=== PATIENT | female | born 2005 | race Two or more races ===

== ENCOUNTER 2023-03-17 10:00 | Observation (INO) | payer MEDICAID, OTHER | END 2023-03-17 13:08 | disposition home or self-care (01) | LOC: LDRP 10:00 | PROVIDERS: ADMIT Obstetrics & Gynecology; ATTEND Obstetrics & Gynecology | DX: O62.9 Abnormality of forces of labor, unspecified (principal); Z3A.40 40 weeks gestation of pregnancy | CPT/HCPCS: 59025; 76818; 81002; G0378 ==

== ENCOUNTER 2023-03-19 17:23 | Observation (INO) | payer MEDICAID | END 2023-03-19 19:47 | disposition home or self-care (01) | LOC: LDRP 17:23 | PROVIDERS: ADMIT Obstetrics & Gynecology; ATTEND Obstetrics & Gynecology | DX: O48.0 Post-term pregnancy (principal); Z3A.40 40 weeks gestation of pregnancy | CPT/HCPCS: 59025; 76818; 81002; 94760; G0378 ==

== ENCOUNTER 2023-03-21 12:05 | Observation (INO) | payer MEDICAID ==
[2023-03-21] MEDS ORDERED: PREN-96 PO (12:38)
== END 2023-03-21 14:20 | disposition home or self-care (01) ==
LOC: UNDOADMOB 12:05 → LDRP 12:05
PROVIDERS: ADMIT Obstetrics & Gynecology; ATTEND Obstetrics & Gynecology
DX: O48.0 Post-term pregnancy (principal); Z3A.40 40 weeks gestation of pregnancy
CPT/HCPCS: 59025; 76818; 81002; 94760; G0378

== ENCOUNTER 2023-03-23 04:13 | Inpatient (IN) | payer MEDICAID ==
[~2023-03-23] VITALS: Ht 157.5 cm; Wt 95.3 kg
[~2023-03-23 04:13] MED LIST: PREN-96 PO
[2023-03-23] MEDS ORDERED: PHISODERM TOP SOLN 240ML BTL TOP PRN ×2 (04:45→07:15)
[2023-03-23] MEDS ORDERED: DERMOPLAST 60ML BOTTLE TOP PRN ×2 (04:45→07:15)
[2023-03-23] MEDS ORDERED: PROMETHAZINE HCL 25 MG/ML 1ML IV PRN (04:45)
[2023-03-23] MEDS ORDERED: WITCH HAZEL-GLYCERIN PAD TOP PRN ×2 (04:45→07:15)
[2023-03-23] MEDS ORDERED: LIDOCAINE 2%HCL (LOCAL ANESTH.) INJ 20ML MDV IJ PRN (04:45)
[2023-03-23 05:35] LABS: Basophils # (auto) 0 10 ^3/uL (0-0.2); Basophils % (auto) 0.7 % (0.0-2.0); Eosinophils # (auto) 0.1 10 ^3/uL (0-0.8); Hemoglobin 8.9 g/dL (12.2-16.2); Lymphocytes # (auto) 1.4 10 ^3/uL (0.4-5.4); Monocytes # (auto) 0.4 10 ^3/uL (0-1.3); Neutrophils # (auto) 4.9 10 ^3/uL (1.6-8.6)
[2023-03-23 05:37] LABS: Eosinophils % (auto) 1.5 % (0.0-7.0); Hematocrit 28.9 % (36.0-46.0); Lymphocytes % (auto) 20.3 % (10.0-50.0); Mean Corpuscular Hemoglobin 20.4 pg (28.0-32.0); Mean Corpuscular Hgb Conc. 30.9 g/dL (32.0-36.0); Mean Corpuscular Volume 65.8 fL (80.0-100.0); Monocytes % (auto) 6.3 % (0.0-12.0); Neutrophils % (auto) 71.2 % (37.0-80.0); Nucleated Red Blood Cells % 0.1 %; Red Blood Cells 4.39 10^6/uL (4.0-5.20); Red Cell Distribution Width 19.8 % (11.8-14.3); White Blood Cell 6.9 10^3/uL (4.4-10.8)
[2023-03-23 05:54] LABS: Albumin 3.6 g/dL (3.2-4.8); Alkaline Phosphatase 187 U/L (46-116); Anion Gap 10 (5-15); Aspartate Aminotransferase 14 U/L (13-40); BUN/Creatinine Ratio 11.6 (10.0-20.0); Bilirubin, Total 0.7 mg/dL (0.2-1.0); Blood Urea Nitrogen 5 mg/dL (9-23); Calcium 8.3 mg/dL (8.5-10.1); Carbon Dioxide 19 mmol/L (20-30); Chloride 109 mmol/L (98-107); Glucose 120 mg/dL (74-106); Potassium 3.1 mmol/L (3.5-5.1); Sodium 138 mmol/L (136-145); Total Protein 5.7 g/dL (5.7-8.2)
[2023-03-23 05:55] LABS: INR 0.96 (0.9-1.15); Partial Thromboplastin Time 27.1 SEC (24.5-34.5); Prothrombin Time 10.1 sec (9.3-11.8)
[2023-03-23 06:10] LABS: Urine Bacteria FEW /hpf (None Seen); Urine Blood Negative /uL (Negative); Urine Clarity Clear (Clear); Urine Color Yellow (Yellow); Urine Mucus FEW (None Seen); Urine Protein, UAD 1+ (Negative); Urine Specific Gravity 1.014 (1.001-1.035); Urine Urobilinogen Normal (Negative); Urine WBC 11 /hpf (0 - 5); Urine pH 6.5 (5.0-8.0)
[2023-03-23 06:12] LABS: Amphetamine Screen, Urine Neg (NEGATIVE); Barbiturate Scree,Urine Neg (NEGATIVE); Benzodiazephine Screen, Urine Neg (NEGATIVE); Cannabinoid Screen, Urine Neg (NEGATIVE); Cocaine Screen, Urine Neg (NEGATIVE); Opiate Scree,Urine Neg (NEGATIVE); Phencyclidine Screen, Urine Neg (NEGATIVE)
[2023-03-23 06:29] LABS: Alanine Aminotransferase < 9 U/L (7-40)
[2023-03-23] MEDS ORDERED: MINERAL OIL TOPICAL 10ml TOP PRN (07:15)
[2023-03-23] MEDS ORDERED: PROMETHAZINE HCL 25 MG/ML 1ML IM PRN (07:15)
[2023-03-23] MEDS ORDERED: miSOPROStol 100 mcg TAB SL PRN (07:15)
[2023-03-23] MEDS ORDERED: METHYLERGONOVINE MALEATE 0.2 MG/ML AMP IM PRN (07:15)
[2023-03-23] MEDS ORDERED: CARBOPROST TROMETHAMINE 250 MCG/1ML VIAL IM PRN (07:15)
[2023-03-23] MEDS ORDERED: ONDANSETRON HCL 4 MG/2 ML VIAL IV PRN (07:15)
[2023-03-23] MEDS ORDERED: diphenhdrAMINE HCL 50 MG/1 ML VL IV PRN (07:15)
[2023-03-23] MEDS ORDERED: ACETAMINOPHEN 325 MG TAB PO PRN (07:15)
[2023-03-23] MEDS ORDERED: fentaNYL CITRATE 100 MCG/2 ML VL IV PRN (07:15)
[2023-03-23] MEDS ORDERED: TRANEXAMIC ACID 1,000 MG in SODIUM CHL 0.9% 100 ML IV PRN (07:15)
[2023-03-23 09:57] LABS: Platelet Estimate Adequate
[2023-03-23 09:58] LABS: Hypochromia Marked
[2023-03-23] MEDS: miSOPROStol 50 MCG per PRE-CUT 1/2 TAB PO PRN ×2 (10:04→14:30)
[2023-03-23] MEDS: LACTATED RINGER'S 1,000 ML IV SCH ×3 (10:38→23:23)
[2023-03-23] MEDS ORDERED: DIPHENOXYLATE W/ATROPINE 2.5 MG TAB PO SCH (12:00)
[2023-03-23] MEDS: POTASSIUM CHL 20 Meq TABLET PO SCH (21:51)
[2023-03-24] VITALS (18 sets, daily range): BP systolic 103–141; BP diastolic 52–87; PULSE 90–122; RESP 16–18; TEMP 98.4–98.6; O2SAT 95–100
[2023-03-24] MEDS ORDERED: LACT. RINGERS/OXYTOCIN 20UNITS 1,000 ML IV SCH (05:15)
[2023-03-24] MEDS ORDERED: TERBUTALINE SULFATE 1 MG/ML 1ML VIAL SC PRN (05:15)
[2023-03-24] MEDS ORDERED: LACT. RINGERS/OXYTOCIN 20UNITS 500 ML IV ONE ×2 (05:15→05:45)
[2023-03-24 07:06] LABS: RPR Non Reactive (Non Reactive)
[2023-03-24] MEDS: LACTATED RINGER'S 1,000 ML IV SCH ×2 (07:17→14:59)
[2023-03-24] MEDS ORDERED: ceFAZolin 2 GM/D5W100ml 100 ML IV ONE (08:30)
[2023-03-24] MEDS ORDERED: HYDR-4902 PO (08:38)
[2023-03-24] MEDS ORDERED: DOCU-94 PO (08:38)
[2023-03-24] MEDS ORDERED: FAMOTIDINE (10MG/ML) 2ML VL IV ONE (08:50)
[2023-03-24] MEDS ORDERED: SUCCINYLCHOLINE CHLORIDE 20 MG/ML 10ML VIAL IV ONE (08:50)
[2023-03-24] MEDS ORDERED: TETRACAINE 1% INJ 2 ML VIAL IJ ONE (08:50)
[2023-03-24] MEDS ORDERED: MORPHINE SULF PF 5 MG/10 ML VIAL ONE (08:51)
[2023-03-24] MEDS ORDERED: ePHEDrine SULFATE 50 MG/ML AMP ONE (08:51)
[2023-03-24] MEDS ORDERED: GLYCOPYRROLATE 0.2 MG/ML 1ML VIAL ONE (08:51)
[2023-03-24] MEDS ORDERED: KETOROLAC TROMETH 30 MG/ML 1ML VIAL ONE (08:51)
[2023-03-24] MEDS ORDERED: DexAMETHasone SOD PHOS 10MG/1ML VIAL INJ ONE (08:51)
[2023-03-24] MEDS ORDERED: ONDANSETRON HCL 4 MG/2 ML VIAL ONE (08:51)
[2023-03-24] MEDS ORDERED: fentaNYL CITRATE 100 MCG/2 ML VL ONE (08:51)
[2023-03-24] MEDS ORDERED: oxyTOCIN 10 UNIT/ML 10ML VIAL ONE (08:52)
[2023-03-24] MEDS ORDERED: LACT. RINGERS/OXYTOCIN 20UNITS 1,000 ML IV ONE (09:15)
[2023-03-24] MEDS ORDERED: ONDANSETRON HCL 4 MG/2 ML VIAL IV PRN ×3 (09:15→10:15)
[2023-03-24] MEDS ORDERED: CARBOPROST TROMETHAMINE 250 MCG/1ML VIAL IM ONE (09:31)
[2023-03-24] MEDS ORDERED: DIPHENOXYLATE W/ATROPINE 2.5 MG TAB ONE (10:07)
[2023-03-24] MEDS ORDERED: DexAMETHasone SOD PHOS 10MG/1ML VIAL INJ IV PRN (10:15)
[2023-03-24] MEDS ORDERED: NALOXONE HCL 0.4 MG/ML VIAL IV PRN (10:15)
[2023-03-24] MEDS ORDERED: diphenhdrAMINE HCL 50 MG/1 ML VL IV PRN (10:15)
[2023-03-24] MEDS ORDERED: KETOROLAC TROMETH 30 MG/ML 1ML VIAL IV PRN (10:15)
[2023-03-24] MEDS ORDERED: ACETAMINOPHEN IV 1000 MG/100ML (10MG/ML) IV PRN (11:45)
[2023-03-24] MEDS: POTASSIUM CHL 20 Meq TABLET PO SCH ×2 (16:48→22:00)
[2023-03-24] MEDS: ceFAZolin 1GM/50ML 50 ML IV SCH ×2 (16:50→17:15)
[2023-03-24 21:36] LABS: Basophils # (auto) 0 10 ^3/uL (0-0.2); Basophils % (auto) 0.5 % (0.0-2.0); Eosinophils # (auto) 0 10 ^3/uL (0-0.8); Eosinophils % (auto) 0.4 % (0.0-7.0); Hemoglobin 8.2 g/dL (12.2-16.2); Monocytes # (auto) 0.6 10 ^3/uL (0-1.3); Neutrophils # (auto) 7.1 10 ^3/uL (1.6-8.6); Nucleated Red Blood Cells % 0.1 %
[2023-03-24 21:37] LABS: Hematocrit 26.3 % (36.0-46.0); Lymphocytes # (auto) 1.2 10 ^3/uL (0.4-5.4); Lymphocytes % (auto) 13.7 % (10.0-50.0); Mean Corpuscular Hemoglobin 20.3 pg (28.0-32.0); Mean Corpuscular Hgb Conc. 31.1 g/dL (32.0-36.0); Mean Corpuscular Volume 65.4 fL (80.0-100.0); Monocytes % (auto) 6.8 % (0.0-12.0); Neutrophils % (auto) 78.6 % (37.0-80.0); Red Blood Cells 4.03 10^6/uL (4.0-5.20); Red Cell Distribution Width 19.7 % (11.8-14.3); White Blood Cell 9.1 10^3/uL (4.4-10.8)
[2023-03-24 22:15] LABS: Anisocytosis Slight; Hypochromia Marked; Large Platelets FEW; Platelet Estimate Adequate
[2023-03-24 22:16] LABS: Stomatocytes Few
[2023-03-25] VITALS (15 sets, daily range): BP systolic 93–121; BP diastolic 50–65; PULSE 78–99; RESP 16–18; TEMP 97.7–98.6; O2SAT 95–98
[2023-03-25] MEDS: ceFAZolin 1GM/50ML 50 ML IV SCH (01:13)
[2023-03-25 06:19] LABS: Eosinophils # (auto) 0 10 ^3/uL (0-0.8); Hematocrit 24.9 % (36.0-46.0); Hemoglobin 7.8 g/dL (12.2-16.2); Lymphocytes # (auto) 1.3 10 ^3/uL (0.4-5.4); Lymphocytes % (auto) 16.6 % (10.0-50.0); Monocytes # (auto) 0.5 10 ^3/uL (0-1.3); Neutrophils # (auto) 5.8 10 ^3/uL (1.6-8.6); Red Cell Distribution Width 19.7 % (11.8-14.3); White Blood Cell 7.6 10^3/uL (4.4-10.8)
[2023-03-25 06:26] LABS: Basophils # (auto) 0.1 10 ^3/uL (0-0.2); Basophils % (auto) 0.7 % (0.0-2.0); Eosinophils % (auto) 0.5 % (0.0-7.0); Mean Corpuscular Hemoglobin 20.1 pg (28.0-32.0); Mean Corpuscular Hgb Conc. 31.1 g/dL (32.0-36.0); Mean Corpuscular Volume 64.7 fL (80.0-100.0); Monocytes % (auto) 6.5 % (0.0-12.0); Neutrophils % (auto) 75.7 % (37.0-80.0); Nucleated Red Blood Cells % 0.1 %; Red Blood Cells 3.85 10^6/uL (4.0-5.20)
[2023-03-25] MEDS ORDERED: BISACODYL 10 MG RECT SUPP PR PRN (06:30)
[2023-03-25] MEDS ORDERED: HYDROcodone-ACET 5/325MG TAB PO PRN ×2 (06:30)
[2023-03-25] MEDS ORDERED: ACETAMINOPHEN IV 1000 MG/100ML (10MG/ML) IV PRN (07:00)
[2023-03-25 08:42] LABS: Platelet Estimate Adequate
[2023-03-25 08:43] LABS: Anisocytosis Slight; Hypochromia Marked; Tear Drop Cells FEW
[2023-03-25] MEDS ORDERED: ceFAZolin 1GM/50ML 50 ML IV ONE (09:00)
[2023-03-25] MEDS: DOCUSATE CALCIUM 240 MG CAP PO SCH (09:43)
[2023-03-25] MEDS: POTASSIUM CHL 20 Meq TABLET PO SCH ×2 (09:43→21:36)
[2023-03-25] MEDS: FERROUS SULFATE 325mg EC TAB PO SCH ×2 (09:43→21:36)
[2023-03-25] MEDS: DOCUSATE SOD 100 MG CAP PO SCH ×2 (09:44→21:36)
[2023-03-25] MEDS: IBUPROFEN 800 MG TAB PO PRN (11:13)
[2023-03-25] MEDS ORDERED: MEASLES, MUMPS & RUBELLA VAC(MMRII) 0.5ML SC ONE (14:15)
[2023-03-26 03:20] VITALS: BP 96/50; PULSE 87; RESP 18; TEMP 98.3; O2SAT 96
[2023-03-26] MEDS: IBUPROFEN 800 MG TAB PO PRN ×2 (03:26→11:03)
[2023-03-26 07:00] VITALS: BP 106/53; PULSE 73; RESP 17; TEMP 97.7; O2SAT 96
[2023-03-26 07:02] LABS: Basophils # (auto) 0.1 10 ^3/uL (0-0.2); Basophils % (auto) 0.6 % (0.0-2.0); Eosinophils # (auto) 0.1 10 ^3/uL (0-0.8); Eosinophils % (auto) 1.2 % (0.0-7.0); Hemoglobin 8.4 g/dL (12.2-16.2); Lymphocytes # (auto) 1.5 10 ^3/uL (0.4-5.4); Monocytes # (auto) 0.6 10 ^3/uL (0-1.3); Monocytes % (auto) 6.4 % (0.0-12.0); Neutrophils # (auto) 6.9 10 ^3/uL (1.6-8.6); White Blood Cell 9.2 10^3/uL (4.4-10.8)
[2023-03-26 07:05] LABS: Albumin 3.7 g/dL (3.2-4.8); Alkaline Phosphatase 180 U/L (46-116); Anion Gap 8 (5-15); Aspartate Aminotransferase 20 U/L (13-40); Bilirubin, Total 0.8 mg/dL (0.2-1.0); Calcium 8.7 mg/dL (8.7-10.4); Carbon Dioxide 23 mmol/L (20-30); Chloride 108 mmol/L (98-107); Glucose 73 mg/dL (74-106); Hematocrit 26.9 % (36.0-46.0); Lymphocytes % (auto) 16.5 % (10.0-50.0); Mean Corpuscular Hgb Conc. 31.3 g/dL (32.0-36.0); Mean Corpuscular Volume 67.2 fL (80.0-100.0); Neutrophils % (auto) 75.3 % (37.0-80.0); Potassium 3.9 mmol/L (3.5-5.1); Red Cell Distribution Width 19.5 % (11.8-14.3); Sodium 139 mmol/L (136-145); Total Protein 6.1 g/dL (5.7-8.2)
[2023-03-26 07:17] LABS: Alanine Aminotransferase < 9 U/L (7-40); BUN/Creatinine Ratio 8.9 (10.0-20.0); Blood Urea Nitrogen < 5 mg/dL (9-23)
[2023-03-26] MEDS: FERROUS SULFATE 325mg EC TAB PO SCH (09:55)
[2023-03-26] MEDS: POTASSIUM CHL 20 Meq TABLET PO SCH (09:55)
[2023-03-26] MEDS: DOCUSATE CALCIUM 240 MG CAP PO SCH (09:55)
[2023-03-26] MEDS: DOCUSATE SOD 100 MG CAP PO SCH (09:56)
[2023-03-26 10:53] VITALS: BP 114/58; PULSE 87; RESP 16; TEMP 98.1
[2023-03-26 20:06] LABS: Treponema pallidum Ab (FTA-Ab) Non Reactive (Non Reactive)
== END 2023-03-26 12:28 | disposition home or self-care (01) | DRG 540 ==
LOC: LDRP 04:13
PROVIDERS: ADMIT Obstetrics & Gynecology; ATTEND Obstetrics & Gynecology
PROC: 10D00Z1 Extraction of Products of Conception, Low, Open Approach (ICD-10-PCS; principal; 2023-03-24 09:01)
DX: O48.0 Post-term pregnancy (principal); O41.03X0 Oligohydramnios, third trimester, not applicable or unspecified; O61.9 Failed induction of labor, unspecified; Z37.0 Single live birth; Z3A.40 40 weeks gestation of pregnancy; O90.81 Anemia of the puerperium
CPT/HCPCS: 36415; 59200; 76815; 80053; 80307; 81001; 84132; 85025; 85610; 85730; 86592; 86850; 86900; 86901; 86920; 94760; 94762; 96360; 96361; 96365; 96366; 96372; G0378; J0131; J0330; J0690; J1100; J1885; J2405; J2590; J3490